=== PATIENT | male | born 1960 | race Caucasian/White ===

== ENCOUNTER 2018-11-07 07:57 | Emergency (ER) | payer OTHER ==
[~2018-11-07] VITALS: Ht 177.8 cm; Wt 117.9 kg
[2018-11-07 08:09] VITALS: BP 177/91
[2018-11-07] MEDS ORDERED: CARDIZEM LA360 M1 PO (08:13)
[2018-11-07] MEDS ORDERED: OMEPRAZOLE40 MG PO (08:13)
[2018-11-07] MEDS ORDERED: PREDNISONE 20 M20 M1 PO (08:30)
== END 2018-11-07 08:41 | disposition home or self-care (01) ==
LOC: M.ERS 07:57
DX: L29.9 Pruritus, unspecified (principal); T49.4X5A Adverse effect of keratolytics, keratoplastics, and other hair treatment drugs and preparations, initial encounter; I10 Essential (primary) hypertension; K21.9 Gastro-esophageal reflux disease without esophagitis; Y92.89 Other specified places as the place of occurrence of the external cause